=== PATIENT | male | born 1985 | race Caucasian/White ===

== ENCOUNTER 2020-09-20 14:49 | Emergency (ER) | payer SELFPAY ==
[~2020-09-20] VITALS: Ht 175.3 cm; Wt 99.8 kg
[2020-09-20 14:50] VITALS: BP_SYST 112
[2020-09-20] MEDS ORDERED: LIDOCAINE 1%, 20 ML MDV 20 ML ONE (15:27)
[2020-09-20] MEDS ORDERED: LIDOCAINE 1% 10 MG/ML, 20 ML MDV INJ ONE (15:45)
[2020-09-20] MEDS ORDERED: DIPH-TET-PERTUS Vaccine 0.5 ML VIAL (ADACEL) I.M. ONE (15:45)
[2020-09-20] MEDS ORDERED: BACITRACIN 1 GM OINT TP ONE (15:45)
[2020-09-20 16:29] VITALS: BP_SYST 132
== END 2020-09-20 16:32 | disposition home or self-care (01) ==
LOC: SED 14:49
DX: S61.211A Laceration without foreign body of left index finger without damage to nail, initial encounter (principal); V00.131A Fall from skateboard, initial encounter; Y93.51 Activity, roller skating (inline) and skateboarding; Y92.89 Other specified places as the place of occurrence of the external cause; Y99.8 Other external cause status
CPT/HCPCS: 12002; 73030; 73130; 90471; 90715; 99284; J2001